=== PATIENT | male | born 1950 | race Hispanic/Latino ===

== ENCOUNTER → 2024-08-12 | Outpatient (CLI) | payer MEDICARE ==
[~2024-08-12] MED LIST: DORZ10DR10 OP; FAMO20TA8 PO; FLUC100T12 PO; LATA2.5D14 OP; MELATONIN PO; OSEL75 PO; PRED5TAB44 PO; SUCR1ORA15 PO
--- NOTE | 2024-08-12 12:50 | HMCIMG ---
UPPER GI SERIES History: GASTRITIS, GERD W/O BLEEDING; DIAPHRAGMATIC HERNIA; DISEASE OF ESOPHAGUS Comparison: none Contrast: barium sulfate suspension, effervescent granules TECHNIQUE: EXAMINATION IS DONE UNDER FLUOROSCOPIC CONTROL, WITH FLUOROSCOPIC SPOTS OBTAINED. ALSO, OVERHEAD AP, LATERAL AND OBLIQUE VIEWS WERE OBTAINED. FINDINGS: Under fluoroscopic evaluation, the patient's esophagus demonstrates normal course, contour and caliber. Normal motility is seen. There is a small hiatal hernia. No reflux is seen. The stomach, duodenal bulb, duodenal C-loop, and visualized proximal small bowel show no extrinsic compression, fixed filling defect, ulcerations or abnormalities in mucosal pattern. No tumor is identified. There is no gastric outlet obstruction. There is no extravasation. There is no evidence of malrotation. IMPRESSION: Small hiatal hernia.
== END | disposition home or self-care (01) ==
LOC: RAH 09:49
PROVIDERS: ATTEND Internal Medicine
DX: K44.9 Diaphragmatic hernia without obstruction or gangrene (principal); K29.70 Gastritis, unspecified, without bleeding; K21.00 Gastro-esophageal reflux disease with esophagitis, without bleeding; K22.9 Disease of esophagus, unspecified
CPT/HCPCS: 74240